=== PATIENT | female | born 1990 | race Two or more races ===

== ENCOUNTER 2020-12-02 04:22 | Day surgery (SDC) | payer OTHER ==
[2020-12-02 08:04] VITALS: TEMP 98.2; BMI 30.4
[2020-12-02 10:40] VITALS: BP 119/77; PULSE 65
== END 2020-12-02 09:46 | disposition home or self-care (01) ==
LOC: JASU-ENDO 04:22
PROVIDERS: ATTEND Internal Medicine Gastroenterology
PROC: 0DB38ZX Excision of Lower Esophagus, Via Natural or Artificial Opening Endoscopic, Diagnostic (ICD-10-PCS; principal; 2020-12-02 08:45)
DX: K21.00 Gastro-esophageal reflux disease with esophagitis, without bleeding (principal); K29.50 Unspecified chronic gastritis without bleeding; B96.81 Helicobacter pylori [H. pylori] as the cause of diseases classified elsewhere; Z88.0 Allergy status to penicillin; Z88.8 Allergy status to other drugs, medicaments and biological substances
CPT/HCPCS: 81025; 88305-TC; 88342-TC